=== PATIENT | male | born 1955 | race American Indian/Alaskan Native ===

== ENCOUNTER 2018-05-22 11:17 | Inpatient (IN) | payer BC ==
--- NOTE | 2018-05-22 11:32 | Emergency Department Report ---
Blank Doc - Documentation Documentation: This is a 62 y.o. male that was sent to ER for evaluation of elevated heart rate by bd special education teacher. PMH of DM and Afib. Denies pain at this time. Ordered: Labs Main Ed for further evaluation.
[2018-05-22] MEDS ORDERED: CARDIZEM IV ONE ×2 (12:07→12:55)
[2018-05-22 12:25] LABS: Basophils # (Auto) 0.1 K/mm3 (0.0-0.1); Basophils % (Auto) 0.9 % (0.0-1.8); Eosinophils # (Auto) 0.2 K/mm3 (0.0-0.4); Eosinophils % (Auto) 1.9 % (0.0-4.3); Hematocrit 44.6 % (35.5-45.6); Hemoglobin 14.7 gm/dl (11.8-15.2); Lymphocytes # (Auto) 2.3 K/mm3 (1.2-5.4); Lymphocytes % (Auto) 22.3 % (13.4-35.0); Mean Corpuscular HGB Conc 33 % (32-34); Mean Corpuscular Volume 79 fl (84-94); Monocytes # (Auto) 0.9 K/mm3 (0.0-0.8); Monocytes % (Auto) 8.8 % (0.0-7.3); Platelet Count 201 K/mm3 (140-440); Red Blood Count 5.66 M/mm3 (3.65-5.03); Red Cell Distribution Width 14.3 % (13.2-15.2)
--- NOTE | 2018-05-22 12:27 | Emergency Department Report ---
ED General Adult HPI - General Chief complaint: Arrhythmia/Palpitations Stated complaint: IRREG HEARTBEAT Time Seen by Provider: 05/22/18 11:26 Source: patient Mode of arrival: Ambulatory Limitations: No Limitations - History of Present Illness Initial comments: The patient presents to the ED from his cube machine tender's office for A. fib. The patient states he had a routine follow-up visit today with his cube machine tender when it was noticed that he was in A. fib with RVR. Patient states she has a history A. fib and endorses that he was feeling fine and did not notice that he was having palpitations. Patient denies chest pain, shortness of breath, dizziness, abdominal pain -: Gradual Severity scale (0 -10): 0 Consistency: constant Improves with: none Worsens with: none Associated Symptoms: denies other symptoms Treatments Prior to Arrival: none - Related Data Home Medications Medication Instructions Recorded Confirmed Last Taken Apixaban [Eliquis] 5 mg PO DAILY 05/22/18 05/22/18 Unknown AtorvaSTATin [Lipitor] 20 mg PO QHS 05/22/18 05/22/18 Unknown Bumetanide 1 mg PO DAILY 05/22/18 05/22/18 Unknown Dulaglutide [Trulicity] 1.5 mg SQ QWEEK 05/22/18 05/22/18 Unknown Fenofibrate 160 mg PO DAILY 05/22/18 05/22/18 Unknown Insulin Glargine,Hum.rec.anlog 45 unit SQ QHS 05/22/18 05/22/18 Unknown [Lantus Solostar] Metformin HCl [Glucophage] 1,000 mg PO QDAY 05/22/18 05/22/18 Unknown Metoprolol [Lopressor] 25 mg PO BID 05/22/18 05/22/18 Unknown Potassium Chloride [K-Dur] 20 meq PO QDAY 05/22/18 05/22/18 Unknown Allergies Allergy/AdvReac Type Severity Reaction Status Date / Time hydrocodone Allergy Swelling Verified 05/22/18 11:21 ED Review of Systems ROS: Stated complaint: IRREG HEARTBEAT Other details as noted in HPI Comment: All other systems reviewed and negative Constitutional: denies: chills, fever Eyes: denies: eye pain, eye discharge, vision change ENT: denies: ear pain, throat pain Respiratory: denies: cough, shortness of breath, wheezing Cardiovascular: denies: chest pain, palpitations Endocrine: no symptoms reported Gastrointestinal: denies: abdominal pain, nausea, diarrhea Genitourinary: denies: urgency, dysuria Musculoskeletal: denies: back pain, joint swelling, arthralgia Skin: denies: rash, lesions Neurological: denies: headache, weakness, paresthesias Psychiatric: denies: anxiety, depression Hematological/Lymphatic: denies: easy bleeding, easy bruising ED Past Medical Hx - Past Medical History Previous Medical History?: Yes Hx Diabetes: Yes (type 2) Additional medical history: Afib - Surgical History Past Surgical History?: No - Social History Smoking Status: Never Smoker Substance Use Type: None - Medications Home Medications: Home Medications Medication Instructions Recorded Confirmed Last Taken Type Apixaban [Eliquis] 5 mg PO DAILY 05/22/18 05/22/18 Unknown History AtorvaSTATin [Lipitor] 20 mg PO QHS 05/22/18 05/22/18 Unknown History Bumetanide 1 mg PO DAILY 05/22/18 05/22/18 Unknown History Dulaglutide [Trulicity] 1.5 mg SQ QWEEK 05/22/18 05/22/18 Unknown History Fenofibrate 160 mg PO DAILY 05/22/18 05/22/18 Unknown History Insulin Glargine,Hum.rec.anlog 45 unit SQ QHS 05/22/18 05/22/18 Unknown History [Lantus Solostar] Metformin HCl [Glucophage] 1,000 mg PO QDAY 05/22/18 05/22/18 Unknown History Metoprolol [Lopressor] 25 mg PO BID 05/22/18 05/22/18 Unknown History Potassium Chloride [K-Dur] 20 meq PO QDAY 05/22/18 05/22/18 Unknown History ED Physical Exam - General Limitations: No Limitations General appearance: alert, in no apparent distress - Head Head exam: Present: atraumatic, normocephalic - Eye Eye exam: Present: normal appearance, PERRL, EOMI - ENT ENT exam: Present: mucous membranes moist - Neck Neck exam: Present: normal inspection - Respiratory Respiratory exam: Present: normal lung sounds bilaterally. Absent: respiratory distress, wheezes, rales, rhonchi - Cardiovascular Cardiovascular Exam: Present: normal rhythm, tachycardia, irregular rhythm, other (irregularly irregular). Absent: systolic murmur, diastolic murmur, rubs, gallop - GI/Abdominal GI/Abdominal exam: Present: soft, normal bowel sounds. Absent: distended, tenderness - Rectal Rectal exam: Present: deferred - Extremities Exam Extremities exam: Present: normal inspection - Back Exam Back exam: Present: normal inspection - Neurological Exam Neurological exam: Present: alert, oriented X3, CN II-XII intact. Absent: motor sensory deficit - Psychiatric Psychiatric exam: Present: normal affect, normal mood - Skin Skin exam: Present: warm, dry, intact, normal color. Absent: rash ED Course Vital Signs 05/22/18 05/22/18 11:25 12:16 Temperature 98.0 F Pulse Rate 64 148 H Respiratory 18 Rate Blood Pressure 129/79 [Right] O2 Sat by Pulse 98 Oximetry ED Medical Decision Making - Lab Data Result diagrams: 05/22/18 12:00 05/22/18 12:00 Lab Results 05/22/18 05/22/18 Range/Units 12:00 12:00 WBC 10.4 (4.5-11.0) K/mm3 RBC 5.66 H (3.65-5.03) M/mm3 Hgb 14.7 (11.8-15.2) gm/dl Hct 44.6 (35.5-45.6) % MCV 79 L (84-94) fl MCH 26 L (28-32) pg MCHC 33 (32-34) % RDW 14.3 (13.2-15.2) % Plt Count 201 (140-440) K/mm3 Lymph % (Auto) 22.3 (13.4-35.0) % [place] % (Auto) 8.8 H (0.0-7.3) % Eos % (Auto) 1.9 (0.0-4.3) % Baso % (Auto) 0.9 (0.0-1.8) % Lymph # 2.3 (1.2-5.4) K/mm3 [place] # 0.9 H (0.0-0.8) K/mm3 Eos # 0.2 (0.0-0.4) K/mm3 Baso # 0.1 (0.0-0.1) K/mm3 Seg Neutrophils % 66.1 (40.0-70.0) % Seg Neutrophils # 6.9 (1.8-7.7) K/mm3 Sodium 139 (137-145) mmol/L Potassium 4.4 (3.6-5.0) mmol/L Chloride 101.6 (98-107) mmol/L Carbon Dioxide 24 (22-30) mmol/L Anion Gap 18 mmol/L BUN 15 (9-20) mg/dL Creatinine 1.0 (0.8-1.5) mg/dL Estimated GFR > 60 ml/min BUN/Creatinine Ratio 15 % Glucose 133 H (75-100) mg/dL Calcium 8.8 (8.4-10.2) mg/dL Phosphorus 3.10 (2.5-4.5) mg/dL Magnesium 1.90 (1.7-2.3) mg/dL Total Bilirubin 0.90 (0.1-1.2) mg/dL AST 18 (5-40) units/L ALT 29 (7-56) units/L Alkaline Phosphatase 61 (35-129) units/L Total Protein 6.8 (6.3-8.2) g/dL Albumin 4.0 (3.9-5) g/dL Albumin/Globulin Ratio 1.4 % - EKG Data -: EKG Interpreted by Me Rate: tachycardia - EKG Data Interpretation: other (atrial fibrillation) - Radiology Data Radiology results: report reviewed - Medical Decision Making IV Cardizem given Cardiology consult in the ED Decision made for admission Critical Care Time: Yes Critical care time in (mins) excluding proc time.: 45 Critical care attestation.: If time is entered above; I have spent that time in minutes in the direct care of this critically ill patient, excluding procedure time. ED Disposition Clinical Impression: Afib Disposition: DC-09 OP ADMIT IP TO THIS HOSP Is pt being admited?: Yes Does the pt Need Aspirin: Yes Condition: Fair
[2018-05-22 12:48] LABS: Alanine Aminotransferase 29 units/L (7-56); BUN/Creatinine Ratio 15; Blood Urea Nitrogen 15 mg/dL (9-20); Calcium 8.8 mg/dL (8.4-10.2); Hemolysis Index 5
[2018-05-22] MEDS ORDERED: NACL 0.9% 250ML 250 ML ONE (12:50)
[2018-05-22] MEDS ORDERED: NACL 0.9% 250ML 250 ML IV ONE ×2 (12:55→13:13)
--- NOTE | 2018-05-22 13:09 | XRay Report ---
AP CHEST: HISTORY: afib AP view of the chest demonstrates a normal mediastinal and cardiac contour with clear lungs and normal bony and soft tissue structures. IMPRESSION: Unremarkable AP chest.
[2018-05-22] MEDS ORDERED: CORDARONE 150 MG in D5W 97 ML IV ONE (14:01)
[2018-05-22] MEDS ORDERED: BABY ASPIRIN PO ONE (14:17)
--- NOTE | 2018-05-22 14:42 | Consultation ---
History of Present Illness Consult date: 05/22/18 Requesting physician: ONEIL FONG Consult reason: atrial fibrillation History of present illness: The pt is a 62 YO male with a past medical history of paroxysmal atrial fibrillation, HTN, HLP, DM, MELISSA, obesity. He is followed in our office by Dr. Oglesby. He presented today to our office for scheduled visit and was found to be in AFib with RVR and was referred to PSYCHIATRIC ED for further eval/management. He initially presented to ED with HR 140s - 150s. He was given IV cardizem bolus and on evaluation, he is in AFib with HR 100s. He denies any complaints. He reports that he is typically asymptomatic when he is in AFib with RVR. Echo done 10/2017 showed EF 58%, mild LVH. Lexiscan MPI stress test done 10/2017 was negative for ischemia, showed fixed defects in mid inferior and apical inferior location. 48Hr Holter study done 03/2018 showed dominant rhythm atrial fibrillation with mostly RVR, average HR 144bpm, high density ventricular ectopies or abberantly conducted supraventricular complexes, 3 episodes of NSVT all 3 beats each, no significant pauses. Past History Past Medical History: atrial fib, diabetes, hypertension, hyperlipidemia, other (melissa) Medications and Allergies Allergies Allergy/AdvReac Type Severity Reaction Status Date / Time hydrocodone Allergy Swelling Verified 05/22/18 11:21 Review of Systems All systems: negative (no complaints) Physical Examination Vital Signs Temp Pulse Resp BP Pulse Ox 98.0 F 64 18 129/79 98 05/22/18 11:25 05/22/18 11:25 05/22/18 11:25 05/22/18 11:25 05/22/18 11:25 General appearance: no acute distress HEENT: Positive: PERRL, Normocephaly, Mucus Membranes Moist Neck: Positive: neck supple, trachea midline Cardiac: Positive: irregularly irregular, S1/S2, Tachycardia Lungs: Positive: clear to auscultation Neuro: Positive: Grossly Intact Abdomen: Positive: Soft. Negative: Tender Skin: Negative: Rash, Wound Musculoskeletal: No Pain Extremities: Present: edema (trace BLE) Results 05/22/18 12:00 05/22/18 12:00 Cardiac Enzymes 05/22/18 Range/Units 12:00 AST 18 (5-40) units/L CBC 05/22/18 Range/Units 12:00 WBC 10.4 (4.5-11.0) K/mm3 RBC 5.66 H (3.65-5.03) M/mm3 Hgb 14.7 (11.8-15.2) gm/dl Hct 44.6 (35.5-45.6) % Plt Count 201 (140-440) K/mm3 Lymph # 2.3 (1.2-5.4) K/mm3 [place] # 0.9 H (0.0-0.8) K/mm3 Eos # 0.2 (0.0-0.4) K/mm3 Baso # 0.1 (0.0-0.1) K/mm3 Comprehensive Metabolic Panel 05/22/18 Range/Units 12:00 Sodium 139 (137-145) mmol/L Potassium 4.4 (3.6-5.0) mmol/L Chloride 101.6 (98-107) mmol/L Carbon Dioxide 24 (22-30) mmol/L BUN 15 (9-20) mg/dL Creatinine 1.0 (0.8-1.5) mg/dL Glucose 133 H (75-100) mg/dL Calcium 8.8 (8.4-10.2) mg/dL AST 18 (5-40) units/L ALT 29 (7-56) units/L Alkaline Phosphatase 61 (35-129) units/L Total Protein 6.8 (6.3-8.2) g/dL Albumin 4.0 (3.9-5) g/dL - Imaging and Cardiology Echo: report reviewed (10/2017 showed EF 58%, mild LVH. ) Holter: report reviewed (48Hr Holter study done 03/2018 showed dominant rhythm atrial fibrillation with mostly RVR, average HR 144bpm, high density ventricular ectopies or abberantly conducted supraventricular complexes, 3 episodes of NSVT all 3 beats each, no significant pauses. ) EKG: report reviewed, image reviewed EKG interpretations - Telemetry EKG Rhythm: Atrial Fibrillation - EKG Supraventricular dysrhythmia: atrial fibrillation Assessment and Plan Admit to tele per hospitalists. Optimize HR - pt takes Toprol XL 25mg daily at home, increase to lopressor 25mg BID. Can consider amiodarone if BPs do not permit BB. Resume home Eliquis, lipitor, bumex. The patient has been seen in conjunction with Dr. Goss who agrees with the assessment and plan of care. - Patient Problems (1) Paroxysmal atrial fibrillation with RVR Status: Chronic (2) HTN (hypertension) Status: Chronic (3) Diabetes Status: Chronic (4) Hyperlipidemia Status: Chronic (5) Obesity Status: Chronic (6) Sleep apnea Status: Chronic
[2018-05-22] MEDS ORDERED: CORDARONE 900 MG in D5W 482 ML IV SCH (15:00)
[2018-05-22] MEDS ORDERED: SODIUM CHLORIDE FLUSH SYRINGE 10 ML IV PRN (15:39)
[2018-05-22] MEDS ORDERED: ZOFRAN IV PRN (15:39)
[2018-05-22] MEDS ORDERED: MORPHINE IV PRN (15:39)
[2018-05-22] MEDS ORDERED: PROVENTIL IH PRN (15:39)
--- NOTE | 2018-05-22 15:39 | History and Physical Report ---
History of Present Illness Chief complaint: My heart is beating real fast. History of present illness: 62 YO Male with Atrial Fib currently on Therapeutic Anticoagulation with Eliquis, DM, HTN, Obesity presents to ED for evaluation. Pt states that he has experienced chest palpitations over the past 1 day. Pt was seen by his clinical academic allergist in the office today and was found to have Atrial Fib with RVR. Pt was instructed to seek further care at [facility]. Pt transported to [facility] for further care and evaluation. Pt seen and evaluated in ED and found to have Atrial Fib with RVR and was treated with rate control with improvement in heart rate to around 100bpm. Cardiology consulted in ED. Pt admitted to telemetry. Pt denies fever, chills, CP, NVD, Trauma, Unintentional Weight Loss, Night sweats, Productive cough, Syncope, hemoptysis, skin rash, or recent ill contacts. Past History Past Medical History: atrial fib, diabetes, hypertension, hyperlipidemia, other ([place]) Past Surgical History: No surgical history, Other (reviewed) Social history: . denies: smoking, alcohol abuse, prescription drug abuse Family history: diabetes, hypertension Medications and Allergies Allergies Allergy/AdvReac Type Severity Reaction Status Date / Time hydrocodone Allergy Swelling Verified 05/22/18 11:21 Home Medications Medication Instructions Recorded Confirmed Last Taken Type Apixaban [Eliquis] 5 mg PO DAILY 05/22/18 05/22/18 Unknown History AtorvaSTATin [Lipitor] 20 mg PO QHS 05/22/18 05/22/18 Unknown History Bumetanide 1 mg PO DAILY 05/22/18 05/22/18 Unknown History Dulaglutide [Trulicity] 1.5 mg SQ QWEEK 05/22/18 05/22/18 Unknown History Fenofibrate 160 mg PO DAILY 05/22/18 05/22/18 Unknown History Insulin Glargine,Hum.rec.anlog 45 unit SQ QHS 05/22/18 05/22/18 Unknown History [Lantus Solostar] Metformin HCl [Glucophage] 1,000 mg PO QDAY 05/22/18 05/22/18 Unknown History Metoprolol [Lopressor] 25 mg PO BID 05/22/18 05/22/18 Unknown History Potassium Chloride [K-Dur] 20 meq PO QDAY 05/22/18 05/22/18 Unknown History Active Meds: Active Medications Apixaban (Eliquis) 5 mg PO Q12HR [facility]; Protocol Atorvastatin Calcium (Lipitor) 20 mg PO QHS [facility] Bumetanide (Bumex) 1 mg PO DAILY [facility] Metoprolol Tartrate (Lopressor) 25 mg PO BID [facility] Review of Systems Constitutional: no weight loss, no weight gain, no fever Ears, nose, mouth and throat: no ear pain, no ear discharge, no tinnitis, no decreased hearing, no nose pain Cardiovascular: palpitations, no chest pain, no orthopnea, no rapid/irregular heart beat, no edema Respiratory: no cough, no cough with sputum, no excessive sputum Gastrointestinal: no abdominal pain, no nausea, no vomiting, no diarrhea Genitourinary Male: no dysuria, no hematuria, no flank pain, no discharge, no urinary frequency Rectal: no pain, no incontinence, no bleeding Musculoskeletal: no neck stiffness, no neck pain, no shooting arm pain, no arm numbness/tingling, no low back pain Integumentary: no rash, no pruritis, no redness, no sores, no wounds Neurological: no head injury, no transient paralysis, no paralysis, no weakness, no parathesias, no numbness, no tingling Psychiatric: no anxiety, no memory loss, no change in sleep habits, no sleep disturbances, no insomnia, no hypersomnia, no change in appetite Endocrine: no cold intolerance, no heat intolerance, no polyphagia, no excessive thirst, no polydipsia, no polyuria Hematologic/Lymphatic: no easy bruising, no easy bleeding Allergic/Immunologic: no urticaria, no allergic rhinitis, no wheezing Exam - Constitutional Vitals: Temp Pulse Resp BP Pulse Ox 98.0 F 148 H 18 129/79 98 05/22/18 11:25 05/22/18 12:16 05/22/18 11:25 05/22/18 11:25 05/22/18 11:25 General appearance: Present: mild distress - EENT Eyes: Present: PERRL ENT: hearing intact, clear oral mucosa - Neck Neck: Present: supple, normal ROM - Respiratory Respiratory effort: normal Respiratory: bilateral: CTA - Cardiovascular Rhythm: irregularly irregular Heart Sounds: Present: S1 & S2. Absent: rub, click - Extremities Extremities: pulses symmetrical, No edema Peripheral Pulses: within normal limits - Abdominal General gastrointestinal: Present: soft, non-tender, non-distended, normal bowel sounds Male genitourinary: Present: normal - Integumentary Integumentary: Present: clear, warm, dry - Musculoskeletal Musculoskeletal: gait normal, strength equal bilaterally - Psychiatric Psychiatric: appropriate mood/affect, intact judgment & insight - Neurologic Neurologic: CNII-XII intact, moves all extremities Results - Labs CBC & Chem 7: 05/22/18 12:00 05/22/18 12:00 Labs: Abnormal lab results 05/22/18 05/22/18 Range/Units 12:00 12:00 RBC 5.66 H (3.65-5.03) M/mm3 MCV 79 L (84-94) fl MCH 26 L (28-32) pg [place] % (Auto) 8.8 H (0.0-7.3) % [place] # 0.9 H (0.0-0.8) K/mm3 Glucose 133 H (75-100) mg/dL Assessment and Plan - Patient Problems (1) Afib Current Visit: No Status: Acute Qualifiers: Atrial fibrillation type: persistent Qualified Code(s): I48.1 - Persistent atrial fibrillation Plan to address problem: Admit to Telemetry, Cardiology consulted in ED, rate control with Beta edmund, supportive care. Amiodarone as per cardiology team. (2) Diabetes Current Visit: No Status: Chronic Plan to address problem: ADA diet, insulin, accu check (3) HTN (hypertension) Current Visit: No Status: Chronic Qualifiers: Hypertension type: essential hypertension Qualified Code(s): I10 - Essential (primary) hypertension Plan to address problem: Monitor bp q shift, (4) Hyperlipidemia Current Visit: No Status: Chronic Qualifiers: Hyperlipidemia type: mixed hyperlipidemia Qualified Code(s): E78.2 - Mixed hyperlipidemia Plan to address problem: statin therapy (5) DVT prophylaxis Current Visit: Yes Status: Acute Plan to address problem: SCD to BLE while in bed.
[2018-05-22] MEDS ORDERED: D50W (25GM) Syringe IV PRN (15:42)
[2018-05-22] MEDS ORDERED: LOPRESSOR PO ONE (18:20)
[2018-05-22] MEDS: HumaLOG SUB-Q SCH (18:33)
[2018-05-22] MEDS ORDERED: LOPRESSOR PO SCH (22:00)
[2018-05-22] MEDS: PEPCID PO SCH (22:11)
[2018-05-22] MEDS: ELIQUIS PO SCH (22:12)
[2018-05-22] MEDS: LOPRESSOR PO SCH (22:12)
[2018-05-22] MEDS: SODIUM CHLORIDE FLUSH SYRINGE 10 ML IV SCH (22:13)
[2018-05-23] MEDS: LOPRESSOR PO SCH ×4 (00:18→21:52)
[2018-05-23] MEDS: HumaLOG SUB-Q SCH ×4 (00:18→18:38)
[2018-05-23 06:57] LABS: BUN/Creatinine Ratio 13; Blood Urea Nitrogen 13 mg/dL (9-20); Calcium 8.5 mg/dL (8.4-10.2); Hemolysis Index 29
--- NOTE | 2018-05-23 08:51 | Progress Note ---
Assessment and Plan Assessment and plan: Patient is a 62 yo man with Atrial Fib currently on Therapeutic Anticoagulation with Eliquis, DM, HTN, Obesity bmi 37 and DLP who presented to [facility] ED with chest palpitations. Pt was seen by his electrical wirer in the office and was found to have Atrial Fib with RVR. Pt was instructed to seek further care at [facility]. He initially presented to ED with HR 140s - 150s. He was given IV cardizem bolus. He denies any complaints. He reports that he is typically asymptomatic when he is in AFib with RVR. * Echo done 10/2017 showed EF 58%, mild LVH. * Lexiscan MPI stress test done 10/2017 was negative for ischemia, showed fixed defects in mid inferior and apical inferior location. * 48Hr Holter study done 03/2018 showed dominant rhythm atrial fibrillation with mostly RVR, average HR 144bpm, high density ventricular ectopies or abberantly conducted supraventricular complexes, 3 episodes of NSVT all 3 beats each, no significant pauses. -Afib with RVR: pt takes Toprol XL 25mg daily at home, increase to lopressor 25mg BID. Can consider amiodarone if BPs do not permit BB. -Type 2 Diabetes Mellitus: ADA diet, insulin, accu check -HTN (hypertension): low salt diet, treat with antihypertensives -Hyperlipidemia: statin therapy -DVT prophylaxis: SCD to BLE while in bed on Eliquis History Interval history: Patient was seen and examined. Follow-up on current diagnosis of AFib with RVR. Overnight uneventful. Patient denies any chest pain, shortness breath, nausea/vomiting or severe headaches. Imaging, nursing note, chart, labs and old chart reviewed. Discussed with patient. Hospitalist Physical - Physical exam Narrative exam: Gen: WDWN, NAD, Awake, Alert, Orientated HEENT: NCAT, EOMI, PERRL, OP Clear Neck: supple, no adenopathy, no thyromegaly, no JVD CVS/Heart: irregular irregular, normal S1S2, pulses present bilaterally Chest/Lungs: CTA B, Symmetrical chest expansion, good air entry bilaterally GI/Abdomen: soft, NTND, good bowel sounds, no guarding or rebound /Bladder: no suprapubic tenderness, no CVA or paraspinal tenderness Extermity/Skin: no c/c/e, no obvious rash MSK: FROM x 4 Neuro: CN 2-12 grossly intact, no new focal deficits Psych: calm - Constitutional Vitals: Temp Pulse Resp BP Pulse Ox 99.0 F 139 H 18 144/79 95 05/23/18 07:59 05/23/18 06:00 05/23/18 07:59 05/23/18 07:59 05/23/18 04:34 General appearance: Absent: mild distress Results - Labs CBC & Chem 7: 05/22/18 12:00 05/23/18 06:10 Labs: Laboratory Last Values WBC 10.4 K/mm3 (4.5-11.0) 05/22/18 12:00 RBC 5.66 M/mm3 (3.65-5.03) H 05/22/18 12:00 Hgb 14.7 gm/dl (11.8-15.2) 05/22/18 12:00 Hct 44.6 % (35.5-45.6) 05/22/18 12:00 MCV 79 fl (84-94) L 05/22/18 12:00 MCH 26 pg (28-32) L 05/22/18 12:00 MCHC 33 % (32-34) 05/22/18 12:00 RDW 14.3 % (13.2-15.2) 05/22/18 12:00 Plt Count 201 K/mm3 (140-440) 05/22/18 12:00 Lymph % (Auto) 22.3 % (13.4-35.0) 05/22/18 12:00 [place] % (Auto) 8.8 % (0.0-7.3) H 05/22/18 12:00 Eos % (Auto) 1.9 % (0.0-4.3) 05/22/18 12:00 Baso % (Auto) 0.9 % (0.0-1.8) 05/22/18 12:00 Lymph # 2.3 K/mm3 (1.2-5.4) 05/22/18 12:00 [place] # 0.9 K/mm3 (0.0-0.8) H 05/22/18 12:00 Eos # 0.2 K/mm3 (0.0-0.4) 05/22/18 12:00 Baso # 0.1 K/mm3 (0.0-0.1) 05/22/18 12:00 Seg Neutrophils % 66.1 % (40.0-70.0) 05/22/18 12:00 Seg Neutrophils # 6.9 K/mm3 (1.8-7.7) 05/22/18 12:00 Sodium 136 mmol/L (137-145) L 05/23/18 06:10 Potassium 5.0 mmol/L (3.6-5.0) 05/23/18 06:10 Chloride 102.2 mmol/L (98-107) 05/23/18 06:10 Carbon Dioxide 22 mmol/L (22-30) 05/23/18 06:10 Anion Gap 17 mmol/L 05/23/18 06:10 BUN 13 mg/dL (9-20) 05/23/18 06:10 Creatinine 1.0 mg/dL (0.8-1.5) 05/23/18 06:10 Estimated GFR > 60 ml/min 05/23/18 06:10 BUN/Creatinine Ratio 13 % 05/23/18 06:10 Glucose 122 mg/dL (75-100) H 05/23/18 06:10 POC Glucose 109 (70-105) H 05/23/18 05:38 Calcium 8.5 mg/dL (8.4-10.2) 05/23/18 06:10 Phosphorus 3.10 mg/dL (2.5-4.5) 05/22/18 12:00 Magnesium 1.90 mg/dL (1.7-2.3) 05/22/18 12:00 Total Bilirubin 0.90 mg/dL (0.1-1.2) 05/22/18 12:00 AST 18 units/L (5-40) 05/22/18 12:00 ALT 29 units/L (7-56) 05/22/18 12:00 Alkaline Phosphatase 61 units/L (35-129) 05/22/18 12:00 Total Protein 6.8 g/dL (6.3-8.2) 05/22/18 12:00 Albumin 4.0 g/dL (3.9-5) 05/22/18 12:00 Albumin/Globulin Ratio 1.4 % 05/22/18 12:00 TSH 1.180 mlU/mL (0.270-4.200) 05/22/18 14:59 Free T4 1.35 ng/dL (0.76-1.46) 05/22/18 14:59
[2018-05-23] MEDS: TRICOR PO SCH (09:23)
[2018-05-23] MEDS: PEPCID PO SCH ×2 (09:24→21:53)
[2018-05-23] MEDS: BUMEX PO SCH (09:31)
[2018-05-23] MEDS: ELIQUIS PO SCH ×2 (09:31)
[2018-05-23] MEDS ORDERED: K-DUR PO SCH (10:00)
[2018-05-23] MEDS ORDERED: NON-FORMULARY (Fenofibrate [Fenofibrate] 160 MG) PO SCH (10:00)
[2018-05-23] MEDS ORDERED: BUMEX PO SCH (10:00)
[2018-05-23] MEDS: SODIUM CHLORIDE FLUSH SYRINGE 10 ML IV SCH ×2 (10:30→21:53)
--- NOTE | 2018-05-23 11:16 | Progress Note ---
Assessment and Plan Pt noted to be in AFib with RVR again this AM. Optimize HR - initiate IV amio. Cont PO lopressor and Eliquis. The patient has been seen in conjunction with Dr. Goss who agrees with the assessment and plan of care. - Patient Problems (1) Paroxysmal atrial fibrillation with RVR Current Visit: Yes Status: Chronic (2) HTN (hypertension) Current Visit: Yes Status: Chronic Qualifiers: Hypertension type: essential hypertension Qualified Code(s): I10 - Essential (primary) hypertension (3) Diabetes Current Visit: Yes Status: Chronic (4) Hyperlipidemia Current Visit: Yes Status: Chronic Qualifiers: Hyperlipidemia type: mixed hyperlipidemia Qualified Code(s): E78.2 - Mixed hyperlipidemia (5) Obesity Current Visit: Yes Status: Chronic (6) Sleep apnea Current Visit: Yes Status: Chronic Subjective Date of service: 05/23/18 Principal diagnosis: AFib RVR Interval history: pt resting in bed, no current complaints. noted to be in AFib with RVR again this AM. Objective Last Vital Signs Temp 99.0 F 05/23/18 07:59 Pulse 139 H 05/23/18 06:00 Resp 18 05/23/18 07:59 BP 144/79 05/23/18 07:59 Pulse Ox 95 05/23/18 04:34 - Physical Examination General: No Apparent Distress HEENT: Positive: PERRL, Normocephaly, Mucus Membranes Moist Neck: Positive: neck supple, trachea midline Cardiac: Positive: irregularly irregular, S1/S2, Tachycardia Lungs: Positive: Decreased Breath Sounds Neuro: Positive: Grossly Intact Abdomen: Positive: Soft. Negative: Tender Skin: Negative: Rash, Wound Musculoskeletal: No Pain Extremities: Present: edema (trace BLE) - Labs and Meds Cardiac Enzymes 05/22/18 Range/Units 12:00 AST 18 (5-40) units/L CBC 05/22/18 Range/Units 12:00 WBC 10.4 (4.5-11.0) K/mm3 RBC 5.66 H (3.65-5.03) M/mm3 Hgb 14.7 (11.8-15.2) gm/dl Hct 44.6 (35.5-45.6) % Plt Count 201 (140-440) K/mm3 Lymph # 2.3 (1.2-5.4) K/mm3 [place] # 0.9 H (0.0-0.8) K/mm3 Eos # 0.2 (0.0-0.4) K/mm3 Baso # 0.1 (0.0-0.1) K/mm3 Comprehensive Metabolic Panel 05/22/18 05/23/18 Range/Units 12:00 06:10 Sodium 139 136 L (137-145) mmol/L Potassium 4.4 5.0 (3.6-5.0) mmol/L Chloride 101.6 102.2 (98-107) mmol/L Carbon Dioxide 24 22 (22-30) mmol/L BUN 15 13 (9-20) mg/dL Creatinine 1.0 1.0 (0.8-1.5) mg/dL Glucose 133 H 122 H (75-100) mg/dL Calcium 8.8 8.5 (8.4-10.2) mg/dL AST 18 (5-40) units/L ALT 29 (7-56) units/L Alkaline Phosphatase 61 (35-129) units/L Total Protein 6.8 (6.3-8.2) g/dL Albumin 4.0 (3.9-5) g/dL - Imaging and Cardiology EKG: report reviewed, image reviewed Echo: report reviewed (10/2017 showed EF 58%, mild LVH. ) Holter: report reviewed (48Hr Holter study done 03/2018 showed dominant rhythm atrial fibrillation with mostly RVR, average HR 144bpm, high density ventricular ectopies or abberantly conducted supraventricular complexes, 3 episodes of NSVT all 3 beats each, no significant pauses. ) - Telemetry EKG Rhythm: Atrial Fibrillation
[2018-05-23] MEDS ORDERED: CORDARONE 150 MG in D5W 97 ML IV ONE (11:55)
[2018-05-23] MEDS ORDERED: AFLURIA QUAD 2018-2019 SYRINGE IM ONE (12:00)
[2018-05-23] MEDS: CORDARONE 900 MG in D5W 482 ML IV SCH (13:22)
[2018-05-24] MEDS: HumaLOG SUB-Q SCH ×4 (00:58→17:47)
[2018-05-24] MEDS: ELIQUIS PO SCH (09:57)
[2018-05-24] MEDS: BUMEX PO SCH (09:57)
[2018-05-24] MEDS: LOPRESSOR PO SCH ×2 (09:57→21:31)
[2018-05-24] MEDS: TRICOR PO SCH (09:58)
[2018-05-24] MEDS: PEPCID PO SCH ×2 (09:58→21:31)
[2018-05-24] MEDS ORDERED: CORDARONE 150 MG in D5W 97 ML IV ONE (11:25)
--- NOTE | 2018-05-24 11:34 | Progress Note ---
Assessment and Plan Pt remains in AFib with RVR, HR 130s - 140s. Give additional bolus of IV amio and cont amio gtt. Cont PO lopressor and Eliquis. If unable to optimize HR chemically, pt may require DCCV. Indications, potential risks and benefits of cardioversion reviewed with pt and he is agreeable if necessary. Will tentatively plan for cardioversion with anesthesia tomorrow morning. NPO after MN. The patient has been seen in conjunction with Dr. Goss who agrees with the assessment and plan of care. - Patient Problems (1) Paroxysmal atrial fibrillation with RVR Current Visit: Yes Status: Chronic (2) HTN (hypertension) Current Visit: Yes Status: Chronic Qualifiers: Hypertension type: essential hypertension Qualified Code(s): I10 - Essent ial (primary) hypertension (3) Diabetes Current Visit: Yes Status: Chronic (4) Hyperlipidemia Current Visit: Yes Status: Chronic Qualifiers: Hyperlipidemia type: mixed hyperlipidemia Qualified Code(s): E78.2 - Mixed hyperlipidemia (5) Obesity Current Visit: Yes Status: Chronic (6) Sleep apnea Current Visit: Yes Status: Chronic Subjective Date of service: 05/24/18 Principal diagnosis: AFib RVR Interval history: pt resting in bed, no current complaints. remains in AFib with RVR. amio gtt infusing. Objective Last Vital Signs Temp 98.3 F 05/24/18 07:58 Pulse 61 05/24/18 09:57 Resp 20 05/24/18 07:58 BP 141/87 05/24/18 09:57 Pulse Ox 98 05/24/18 10:00 - Physical Examination General: No Apparent Distress HEENT: Positive: PERRL, Normocephaly, Mucus Membranes Moist Neck: Positive: neck supple, trachea midline Cardiac: Positive: irregularly irregular, S1/S2, Tachycardia Lungs: Positive: Decreased Breath Sounds Neuro: Positive: Grossly Intact Abdomen: Positive: Soft. Negative: Tender Skin: Negative: Rash, Wound Musculoskeletal: No Pain Extremities: Present: edema (trace BLE) - Imaging and Cardiology EKG: report reviewed, image reviewed Echo: report reviewed (10/2017 showed EF 58%, mild LVH. ) Holter: report reviewed (48Hr Holter study done 03/2018 showed dominant rhythm atrial fibrillation with mostly RVR, average HR 144bpm, high density ventricular ectopies or abberantly conducted supraventricular complexes, 3 episodes of NSVT all 3 beats each, no significant pauses. )
[2018-05-24] MEDS: SODIUM CHLORIDE FLUSH SYRINGE 10 ML IV SCH ×2 (14:00→21:32)
--- NOTE | 2018-05-24 17:24 | Progress Note ---
Assessment and Plan Assessment and plan: Patient is a 62 yo man with Atrial Fib currently on Therapeutic Anticoagulation with Eliquis, DM, HTN, Obesity bmi 37 and DLP who presented to [facility] ED with chest palpitations. Pt was seen by his computer forensics technician in the office and was found to have Atrial Fib with RVR. Pt was instructed to seek further care at [facility]. He initially presented to ED with HR 140s - 150s. He was given IV cardizem bolus. He denies any complaints. He reports that he is typically asymptomatic when he is in AFib with RVR. * Echo done 10/2017 showed EF 58%, mild LVH. * Lexiscan MPI stress test done 10/2017 was negative for ischemia, showed fixed defects in mid inferior and apical inferior location. * 48Hr Holter study done 03/2018 showed dominant rhythm atrial fibrillation with mostly RVR, average HR 144bpm, high density ventricular ectopies or abberantly conducted supraventricular complexes, 3 episodes of NSVT all 3 beats each, no significant pauses. -Afib with RVR: Cardiology is following, adjusting medications to control rate, possible Cardioversion -Type 2 Diabetes Mellitus: ADA diet, insulin, accu check -HTN (hypertension): low salt diet, treat with antihypertensives -Hyperlipidemia: statin therapy -DVT prophylaxis: SCD to BLE while in bed on Eliquis History Interval history: Patient was seen and examined. Follow-up on current diagnosis of AFib with RVR. Overnight uneventful. Patient denies any chest pain, shortness breath, nausea/vomiting or severe headaches. Imaging, nursing note, chart, labs and old chart reviewed. Discussed with patient. Hospitalist Physical - Physical exam Narrative exam: Gen: WDWN, NAD, Awake, Alert, Orientated HEENT: NCAT, EOMI, PERRL, OP Clear Neck: supple, no adenopathy, no thyromegaly, no JVD CVS/Heart: irregular irregular, normal S1S2, pulses present bilaterally Chest/Lungs: CTA B, Symmetrical chest expansion, good air entry bilaterally GI/Abdomen: soft, NTND, good bowel sounds, no guarding or rebound /Bladder: no suprapubic tenderness, no CVA or paraspinal tenderness Extermity/Skin: no c/c/e, no obvious rash MSK: FROM x 4 Neuro: CN 2-12 grossly intact, no new focal deficits Psych: calm - Constitutional Vitals: Temp Pulse Resp BP Pulse Ox 98.0 F 73 20 100/59 96 05/24/18 11:27 05/24/18 11:27 05/24/18 11:27 05/24/18 11:27 05/24/18 11:27 General appearance: Absent: mild distress Results - Labs CBC & Chem 7: 05/22/18 12:00 05/23/18 06:10 Labs: Laboratory Last Values WBC 10.4 K/mm3 (4.5-11.0) 05/22/18 12:00 RBC 5.66 M/mm3 (3.65-5.03) H 05/22/18 12:00 Hgb 14.7 gm/dl (11.8-15.2) 05/22/18 12:00 Hct 44.6 % (35.5-45.6) 05/22/18 12:00 MCV 79 fl (84-94) L 05/22/18 12:00 MCH 26 pg (28-32) L 05/22/18 12:00 MCHC 33 % (32-34) 05/22/18 12:00 RDW 14.3 % (13.2-15.2) 05/22/18 12:00 Plt Count 201 K/mm3 (140-440) 05/22/18 12:00 Lymph % (Auto) 22.3 % (13.4-35.0) 05/22/18 12:00 [place] % (Auto) 8.8 % (0.0-7.3) H 05/22/18 12:00 Eos % (Auto) 1.9 % (0.0-4.3) 05/22/18 12:00 Baso % (Auto) 0.9 % (0.0-1.8) 05/22/18 12:00 Lymph # 2.3 K/mm3 (1.2-5.4) 05/22/18 12:00 [place] # 0.9 K/mm3 (0.0-0.8) H 05/22/18 12:00 Eos # 0.2 K/mm3 (0.0-0.4) 05/22/18 12:00 Baso # 0.1 K/mm3 (0.0-0.1) 05/22/18 12:00 Seg Neutrophils % 66.1 % (40.0-70.0) 05/22/18 12:00 Seg Neutrophils # 6.9 K/mm3 (1.8-7.7) 05/22/18 12:00 Sodium 136 mmol/L (137-145) L 05/23/18 06:10 Potassium 5.0 mmol/L (3.6-5.0) 05/23/18 06:10 Chloride 102.2 mmol/L (98-107) 05/23/18 06:10 Carbon Dioxide 22 mmol/L (22-30) 05/23/18 06:10 Anion Gap 17 mmol/L 05/23/18 06:10 BUN 13 mg/dL (9-20) 05/23/18 06:10 Creatinine 1.0 mg/dL (0.8-1.5) 05/23/18 06:10 Estimated GFR > 60 ml/min 05/23/18 06:10 BUN/Creatinine Ratio 13 % 05/23/18 06:10 Glucose 122 mg/dL (75-100) H 05/23/18 06:10 POC Glucose 190 (70-105) H 05/24/18 16:32 Calcium 8.5 mg/dL (8.4-10.2) 05/23/18 06:10 Phosphorus 3.10 mg/dL (2.5-4.5) 05/22/18 12:00 Magnesium 1.90 mg/dL (1.7-2.3) 05/22/18 12:00 Total Bilirubin 0.90 mg/dL (0.1-1.2) 05/22/18 12:00 AST 18 units/L (5-40) 05/22/18 12:00 ALT 29 units/L (7-56) 05/22/18 12:00 Alkaline Phosphatase 61 units/L (35-129) 05/22/18 12:00 Total Protein 6.8 g/dL (6.3-8.2) 05/22/18 12:00 Albumin 4.0 g/dL (3.9-5) 05/22/18 12:00 Albumin/Globulin Ratio 1.4 % 05/22/18 12:00 TSH 1.180 mlU/mL (0.270-4.200) 05/22/18 14:59 Free T4 1.35 ng/dL (0.76-1.46) 05/22/18 14:59
[2018-05-24] MEDS: CORDARONE 900 MG in D5W 482 ML IV SCH (20:15)
[2018-05-24] MEDS ORDERED: AMBIEN PO PRN (22:00)
[2018-05-25] MEDS: HumaLOG SUB-Q SCH ×4 (00:15→18:46)
[2018-05-25] MEDS ORDERED: DIPRIVAN 10 MG/ML IV ONE ×2 (09:57)
--- NOTE | 2018-05-25 10:07 | Progress Note ---
Assessment and Plan Pt remains in AFib with RVR. Proceed with DCCV today. The patient has been seen in conjunction with Dr. Goss who agrees with the assessment and plan of care. - Patient Problems (1) Paroxysmal atrial fibrillation with RVR Current Visit: Yes Status: Chronic (2) HTN (hypertension) Current Visit: Yes Status: Chronic Qualifiers: Hypertension type: essential hypertension Qualified Code(s): I10 - Essential (primary) hypertension (3) Diabetes Current Visit: Yes Status: Chronic (4) Hyperlipidemia Current Visit: Yes Status: Chronic Qualifiers: Hyperlipidemia type: mixed hyperlipidemia Qualified Code(s): E78.2 - Mixed hyperlipidemia (5) Obesity Current Visit: Yes Status: Chronic (6) Sleep apnea Current Visit: Yes Status: Chronic Subjective Date of service: 05/25/18 Principal diagnosis: AFib RVR Interval history: pt resting in bed, no current complaints. remains in AFib with RVR HR 150s. amio gtt infusing. Objective Last Vital Signs Temp 98.3 F 05/25/18 03:36 Pulse 140 H 05/25/18 06:00 Resp 18 05/25/18 03:36 BP 105/73 05/25/18 03:36 Pulse Ox 98 05/25/18 03:36 - Physical Examination General: No Apparent Distress HEENT: Positive: PERRL, Normocephaly, Mucus Membranes Moist Neck: Positive: neck supple, trachea midline Cardiac: Positive: irregularly irregular, S1/S2, Tachycardia Lungs: Positive: Decreased Breath Sounds Neuro: Positive: Grossly Intact Abdomen: Positive: Soft. Negative: Tender Skin: Negative: Rash, Wound Musculoskeletal: No Pain Extremities: Present: edema (trace BLE) - Imaging and Cardiology EKG: report reviewed, image reviewed Echo: report reviewed (10/2017 showed EF 58%, mild LVH. ) Holter: report reviewed (48Hr Holter study done 03/2018 showed dominant rhythm atrial fibrillation with mostly RVR, average HR 144bpm, high density ventricular ectopies or abberantly conducted supraventricular complexes, 3 episodes of NSVT all 3 beats each, no significant pauses. ) - Telemetry EKG Rhythm: Atrial Fibrillation
[2018-05-25] MEDS ORDERED: NACL 0.9% 500 ML 500 ML ONE (10:12)
--- NOTE | 2018-05-25 10:13 | Anesthesia Day of Surgery ---
Anesthesia Day of Surgery - Day of Surgery Patient Examined: Yes Patient H&P Reviewed: Yes Patient is NPO: Yes
--- NOTE | 2018-05-25 10:13 | Anesthesia Consultation ---
Anesthesia Consult and Med Hx Date of service: 05/25/18 - Airway Anesthetic Teeth Evaluation: Partials (upper) ROM Head & Neck: Adequate Mental/Hyoid Distance: Adequate Mallampati Class: Class III Intubation Access Assessment: Possibly Difficult - Pre-Operative Health Status ASA Pre-Surgery Classification: ASA3 Proposed Anesthetic Plan: MAC - Pulmonary Hx Sleep Apnea: Yes - Cardiovascular System Hx Hypertension: Yes Hx Coronary Artery Disease: No (high cholesterol) Hx Cardia Arrhythmia: Yes (atrial fibrillation) - Endocrine Hx Non-Insulin Dependent Diabetes: Yes - Other Systems Hx Cancer: No Hx Obesity: Yes (BMI 37.6)
--- NOTE | 2018-05-25 10:40 | Event Note ---
Date: 05/25/18 S/p unsuccessful DCCV x 3 (200J -> 300J -> 360J) with anesthesia. Will attempt to optimize HR - cont amio gtt, increase lopressor and initiate digoxin. Pt may ultimately require transfer to another facility for ablation. Daquan FORREST NP / DR. SHIRLEY
[2018-05-25] MEDS: LANOXIN IV SCH ×2 (13:11→18:43)
[2018-05-25] MEDS: PEPCID PO SCH ×2 (13:17→22:25)
[2018-05-25] MEDS: BUMEX PO SCH (13:18)
[2018-05-25] MEDS: ELIQUIS PO SCH (13:18)
[2018-05-25] MEDS: TRICOR PO SCH (13:18)
[2018-05-25] MEDS: LOPRESSOR PO SCH ×2 (13:23→20:23)
[2018-05-25] MEDS: SODIUM CHLORIDE FLUSH SYRINGE 10 ML IV SCH ×2 (13:27→22:26)
--- NOTE | 2018-05-25 18:57 | Procedure Note ---
ELECTIVE CARDIOVERSION REPORT INDICATION FOR PROCEDURE: Atrial fibrillation, rapid ventricular response. Informed consent was obtained. The patient was brought to the procedure area for elective DC cardioversion. Conscious sedation was performed by Anesthesiology, who was in attendance throughout the entire procedure. Once adequate anesthesia was achieved, synchronized DC cardioversion was performed first at 200 joules, followed by 300 joules, followed by 360 joules. The patient failed to convert from atrial fibrillation. The procedure was well tolerated. There were no apparent procedural complications. Anesthesia remained at the patient's bedside during the recovery phase. Unsuccessful synchronized DC electrical cardioversion x 3 at 200, 300 and finally 360 joules. Continue current medical program. JOB# [id number] SEBASTIEN/TENZIN
[2018-05-25] MEDS: TYLENOL PO PRN (20:23)
--- NOTE | 2018-05-25 21:03 | Progress Note ---
Assessment and Plan Assessment and plan: Patient is a 62 yo man with Atrial Fib currently on Therapeutic Anticoagulation with Eliquis, DM, HTN, Obesity bmi 37 and DLP who presented to [facility] ED with chest palpitations. Pt was seen by his employee development manager in the office and was found to have Atrial Fib with RVR. Pt was instructed to seek further care at [facility]. He initially presented to ED with HR 140s - 150s. He was given IV cardizem bolus. He denies any complaints. He reports that he is typically asymptomatic when he is in AFib with RVR. * Echo done 10/2017 showed EF 58%, mild LVH. * Lexiscan MPI stress test done 10/2017 was negative for ischemia, showed fixed defects in mid inferior and apical inferior location. * 48Hr Holter study done 03/2018 showed dominant rhythm atrial fibrillation with mostly RVR, average HR 144bpm, high density ventricular ectopies or abberantly conducted supraventricular complexes, 3 episodes of NSVT all 3 beats each, no significant pauses. -Afib with RVR: Cardiology is following, adjusting medications to control rate, failed Cardioversion, medical management -Type 2 Diabetes Mellitus: ADA diet, insulin, accu check -HTN (hypertension): low salt diet, treat with antihypertensives -Hyperlipidemia: statin therapy -DVT prophylaxis: SCD to BLE, Eliquis History Interval history: Patient was seen and examined. Follow-up on current diagnosis of AFib with RVR. Overnight uneventful. Patient denies any chest pain, shortness breath, nausea/vomiting or severe headaches. Imaging, nursing note, chart, labs and old chart reviewed. Discussed with patient. Hospitalist Physical - Constitutional Vitals: Temp Pulse Resp BP Pulse Ox 101.3 F H 145 H 18 114/67 95 05/25/18 20:01 05/25/18 20:53 05/25/18 20:23 05/25/18 20:01 05/25/18 20:01 General appearance: Absent: mild distress Results - Labs CBC & Chem 7: 05/22/18 12:00 05/23/18 06:10 Labs: Laboratory Last Values WBC 10.4 K/mm3 (4.5-11.0) 05/22/18 12:00 RBC 5.66 M/mm3 (3.65-5.03) H 05/22/18 12:00 Hgb 14.7 gm/dl (11.8-15.2) 05/22/18 12:00 Hct 44.6 % (35.5-45.6) 05/22/18 12:00 MCV 79 fl (84-94) L 05/22/18 12:00 MCH 26 pg (28-32) L 05/22/18 12:00 MCHC 33 % (32-34) 05/22/18 12:00 RDW 14.3 % (13.2-15.2) 05/22/18 12:00 Plt Count 201 K/mm3 (140-440) 05/22/18 12:00 Lymph % (Auto) 22.3 % (13.4-35.0) 05/22/18 12:00 Josephine % (Auto) 8.8 % (0.0-7.3) H 05/22/18 12:00 Eos % (Auto) 1.9 % (0.0-4.3) 05/22/18 12:00 Baso % (Auto) 0.9 % (0.0-1.8) 05/22/18 12:00 Lymph # 2.3 K/mm3 (1.2-5.4) 05/22/18 12:00 Josephine # 0.9 K/mm3 (0.0-0.8) H 05/22/18 12:00 Eos # 0.2 K/mm3 (0.0-0.4) 05/22/18 12:00 Baso # 0.1 K/mm3 (0.0-0.1) 05/22/18 12:00 Seg Neutrophils % 66.1 % (40.0-70.0) 05/22/18 12:00 Seg Neutrophils # 6.9 K/mm3 (1.8-7.7) 05/22/18 12:00 Sodium 136 mmol/L (137-145) L 05/23/18 06:10 Potassium 5.0 mmol/L (3.6-5.0) 05/23/18 06:10 Chloride 102.2 mmol/L (98-107) 05/23/18 06:10 Carbon Dioxide 22 mmol/L (22-30) 05/23/18 06:10 Anion Gap 17 mmol/L 05/23/18 06:10 BUN 13 mg/dL (9-20) 05/23/18 06:10 Creatinine 1.0 mg/dL (0.8-1.5) 05/23/18 06:10 Estimated GFR > 60 ml/min 05/23/18 06:10 BUN/Creatinine Ratio 13 % 05/23/18 06:10 Glucose 122 mg/dL (75-100) H 05/23/18 06:10 POC Glucose 191 (70-105) H 05/25/18 15:24 Calcium 8.5 mg/dL (8.4-10.2) 05/23/18 06:10 Phosphorus 3.10 mg/dL (2.5-4.5) 05/22/18 12:00 Magnesium 1.90 mg/dL (1.7-2.3) 05/22/18 12:00 Total Bilirubin 0.90 mg/dL (0.1-1.2) 05/22/18 12:00 AST 18 units/L (5-40) 05/22/18 12:00 ALT 29 units/L (7-56) 05/22/18 12:00 Alkaline Phosphatase 61 units/L (35-129) 05/22/18 12:00 Total Protein 6.8 g/dL (6.3-8.2) 05/22/18 12:00 Albumin 4.0 g/dL (3.9-5) 05/22/18 12:00 Albumin/Globulin Ratio 1.4 % 05/22/18 12:00 TSH 1.180 mlU/mL (0.270-4.200) 05/22/18 14:59 Free T4 1.35 ng/dL (0.76-1.46) 05/22/18 14:59
--- NOTE | 2018-05-25 23:58 | XRay Report ---
PROCEDURE: XR CHEST 1V AP TECHNIQUE: Chest radiograph single view. HISTORY: ELEVATED TEMPERTURE. COMPARISONS: None . FINDINGS: Heart: Normal. Mediastinum/Vessels: Normal. Lungs/Pleural space: Lungs are hyperinflated. There are no confluent infiltrates or mass lesions. Pl eural spaces are clear.. Bony thorax: No acute osseous abnormality. Life support devices: None. IMPRESSION: COPD No acute pulmonary process. This document is electronically signed by Justice Nazario MD., May 25 2018 11:55:58 PM ET
[2018-05-26] MEDS: HumaLOG SUB-Q SCH ×4 (01:02→17:33)
[2018-05-26] MEDS: LANOXIN IV SCH (01:03)
[2018-05-26] MEDS: CORDARONE 900 MG in D5W 482 ML IV SCH ×4 (01:25→21:58)
[2018-05-26 02:02] LABS: Bilirubin,Urine NEG (Negative); Blood,Urine NEG (Negative); Color,Urine Yellow (Yellow); Protein,Urine <15 mg/dL mg/dL (Negative)
[2018-05-26 03:06] LABS: WBC,Urine < 1.0 /HPF (0.0-6.0)
[2018-05-26] MEDS: ROCEPHIN/NS 1 GM/50 ML 1 GM/50 ML BAG IV SCH ×2 (06:25→21:19)
[2018-05-26] MEDS: TYLENOL PO PRN (06:48)
[2018-05-26] MEDS ORDERED: LANOXIN IV STA (07:59)
--- NOTE | 2018-05-26 10:42 | Progress Note ---
Assessment and Plan Atrial fibrillation with rapid ventricular response continues to be a problem. Initially he was tried on Cardizem currently he is on an amiodarone drip. He is also on a small dose of metoprolol. Yesterday cardioversion was attempted but this was unsuccessful. Digoxin has been added to that regimen. I had a long discussion with the daughter who has been quite frustrated and has some issues with the nursing care at nighttime and want the patient transferred. I had a long discussion with her regarding all the management that has been so far which I feel has been quite appropriate. I have advised her that we will be adjusting the medications further and will continue monitoring. We will make an attempt to transfer her to [facility] for consideration of ablation. Patient had a chest x-ray yesterday and this was negative. Urinalysis was negative. White count is not significantly elevated. Patient did have temperature elevation and he had blood cultures drawn. We will also obtain a thyroid profile. Patient is tolerating the heart rate. Because of the blood pressure being on the low side medications are not being aggressively increased. Will gradually increase the metoprolol. And will try a amiodarone 1 mg dose for another 6 hours. At the end of about half an hour to 40 minute discussion with the patient and family they seem to be agreeable with the current plans. Plan is to adjust the medications and continue monitoring.will try PT also We'll make an attempt to transfer him to the [facility] when feasible - Patient Problems (1) Atrial fibrillation with rapid ventricular response Current Visit: Yes Status: Acute (2) Diabetes Current Visit: Yes Status: Chronic (3) HTN (hypertension) Current Visit: Yes Status: Chronic Qualifiers: Hypertension type: essential hypertension Qualified Code(s): I10 - Essential (primary) hypertension (4) Hyperlipidemia Current Visit: Yes Status: Chronic Qualifiers: Hyperlipidemia type: mixed hyperlipidemia Qualified Code(s): E78.2 - Mixed hyperlipidemia (5) Obesity Current Visit: Yes Status: Chronic (6) Sleep apnea Current Visit: Yes Status: Chronic Subjective Date of service: 05/26/18 Principal diagnosis: AFib RVR Interval history: Patient is comfortable today. He denies chest pain difficulty in breathing or palpitations. Persistent atrial fibrillation with rapid rate is continued problem. Patient had fever yesterday. Blood cultures drawn. Daughter is in the room. Objective Vital Signs Temp Pulse Pulse Resp Resp BP BP 05/26/18 06:48 18 05/26/18 04:51 99.3 F 57 L 18 134/81 05/26/18 01:03 119 H 05/25/18 23:40 98.3 F 104 H 20 130/82 05/25/18 22:00 05/25/18 20:53 145 H 05/25/18 20:23 145 H 18 05/25/18 20:01 101.3 F H 45 L 18 114/67 05/25/18 18:43 146 H 107/74 05/25/18 15:24 98.0 F 64 20 107/74 05/25/18 13:23 138 H 112/78 05/25/18 13:11 138 H 112/78 05/25/18 11:00 71 20 114/61 05/25/18 10:45 141 H 30 H 115/68 Pulse Ox Pulse Ox 05/26/18 06:48 05/26/18 04:51 97 05/26/18 01:03 05/25/18 23:40 98 05/25/18 22:00 99 05/25/18 20:53 05/25/18 20:23 05/25/18 20:01 95 05/25/18 18:43 05/25/18 15:24 95 05/25/18 13:23 05/25/18 13:11 05/25/18 11:00 99 05/25/18 10:45 99 - Physical Examination General: No Apparent Distress HEENT: Positive: PERRL, Normocephaly, Mucus Membranes Moist Neck: Positive: neck supple, trachea midline Cardiac: Positive: irregularly irregular, Tachycardia Lungs: Positive: clear to auscultation Neuro: Positive: Grossly Intact Abdomen: Positive: Soft. Negative: Tender Skin: Negative: Rash, Wound Musculoskeletal: No Pain Extremities: Present: edema (trace BLE) - Imaging and Cardiology EKG: report reviewed, image reviewed Echo: report reviewed (10/2017 showed EF 58%, mild LVH. ) Holter: report reviewed (48Hr Holter study done 03/2018 showed dominant rhythm atrial fibrillation with mostly RVR, average HR 144bpm, high density ventricular ectopies or abberantly conducted supraventricular complexes, 3 episodes of NSVT all 3 beats each, no significant pauses. )
[2018-05-26] MEDS: BUMEX PO SCH (11:03)
[2018-05-26] MEDS: ELIQUIS PO SCH (11:04)
[2018-05-26] MEDS: PEPCID PO SCH ×2 (11:05→21:20)
[2018-05-26] MEDS: LANOXIN PO SCH ×2 (11:05→16:30)
[2018-05-26] MEDS: TRICOR PO SCH (11:05)
[2018-05-26] MEDS: SODIUM CHLORIDE FLUSH SYRINGE 10 ML IV SCH ×2 (11:10→21:20)
[2018-05-26 12:44] LABS: Free T4 (Free Thyroxine) 1.58 ng/dL (0.76-1.46)
--- NOTE | 2018-05-26 12:59 | Progress Note ---
Assessment and Plan Assessment and plan: Patient is a 62 yo man with Atrial Fib currently on Therapeutic Anticoagulation with Eliquis, DM, HTN, Obesity bmi 37 and DLP who presented to [facility] ED with chest palpitations. Pt was seen by his assistant teacher in the office and was found to have Atrial Fib with RVR. Pt was instructed to seek further care at [facility]. He initially presented to ED with HR 140s - 150s. He was given IV cardizem bolus. He denies any complaints. He reports that he is typically asymptomatic when he is in AFib with RVR. * Echo done 10/2017 showed EF 58%, mild LVH. * Lexiscan MPI stress test done 10/2017 was negative for ischemia, showed fixed defects in mid inferior and apical inferior location. * 48Hr Holter study done 03/2018 showed dominant rhythm atrial fibrillation with mostly RVR, average HR 144bpm, high density ventricular ectopies or abberantly conducted supraventricular complexes, 3 episodes of NSVT all 3 beats each, no significant pauses. -Afib with RVR: Cardiology is following, adjusting medications to control rate, failed Cardioversion, medical management -Type 2 Diabetes Mellitus: ADA diet, insulin, accu check -HTN (hypertension): low salt diet, treat with antihypertensives -Hyperlipidemia: statin therapy -DVT prophylaxis: SCD to BLE, Eliquis History Interval history: Patient was seen and examined. Follow-up on current diagnosis of AFib with RVR. Overnight uneventful. Patient denies any chest pain, shortness breath, nausea/vomiting or severe headaches. Imaging, nursing note, chart, labs and old chart reviewed. Discussed with patient. Hospitalist Physical - Physical exam Narrative exam: Gen: WDWN, NAD, Awake, Alert, Orientated HEENT: NCAT, EOMI, PERRL, OP Clear Neck: supple, no adenopathy, no thyromegaly, no JVD CVS/Heart: irregular irregular, normal S1S2, pulses present bilaterally Chest/Lungs: CTA B, Symmetrical chest expansion, good air entry bilaterally GI/Abdomen: soft, NTND, good bowel sounds, no guarding or rebound /Bladder: no suprapubic tenderness, no CVA or paraspinal tenderness Extermity/Skin: no c/c/e, no obvious rash MSK: FROM x 4 Neuro: CN 2-12 grossly intact, no new focal deficits Psych: calm - Constitutional Vitals: Temp Pulse Resp BP Pulse Ox 99.3 F 53 L 18 111/69 99 05/26/18 04:51 05/26/18 12:16 05/26/18 06:48 05/26/18 12:16 05/26/18 12:16 General appearance: Absent: mild distress Results - Labs CBC & Chem 7: 05/22/18 12:00 05/23/18 06:10 Labs: Laboratory Last Values WBC 10.4 K/mm3 (4.5-11.0) 05/22/18 12:00 RBC 5.66 M/mm3 (3.65-5.03) H 05/22/18 12:00 Hgb 14.7 gm/dl (11.8-15.2) 05/22/18 12:00 Hct 44.6 % (35.5-45.6) 05/22/18 12:00 MCV 79 fl (84-94) L 05/22/18 12:00 MCH 26 pg (28-32) L 05/22/18 12:00 MCHC 33 % (32-34) 05/22/18 12:00 RDW 14.3 % (13.2-15.2) 05/22/18 12:00 Plt Count 201 K/mm3 (140-440) 05/22/18 12:00 Lymph % (Auto) 22.3 % (13.4-35.0) 05/22/18 12:00 [place] % (Auto) 8.8 % (0.0-7.3) H 05/22/18 12:00 Eos % (Auto) 1.9 % (0.0-4.3) 05/22/18 12:00 Baso % (Auto) 0.9 % (0.0-1.8) 05/22/18 12:00 Lymph # 2.3 K/mm3 (1.2-5.4) 05/22/18 12:00 [place] # 0.9 K/mm3 (0.0-0.8) H 05/22/18 12:00 Eos # 0.2 K/mm3 (0.0-0.4) 05/22/18 12:00 Baso # 0.1 K/mm3 (0.0-0.1) 05/22/18 12:00 Seg Neutrophils % 66.1 % (40.0-70.0) 05/22/18 12:00 Seg Neutrophils # 6.9 K/mm3 (1.8-7.7) 05/22/18 12:00 Sodium 136 mmol/L (137-145) L 05/23/18 06:10 Potassium 5.0 mmol/L (3.6-5.0) 05/23/18 06:10 Chloride 102.2 mmol/L (98-107) 05/23/18 06:10 Carbon Dioxide 22 mmol/L (22-30) 05/23/18 06:10 Anion Gap 17 mmol/L 05/23/18 06:10 BUN 13 mg/dL (9-20) 05/23/18 06:10 Creatinine 1.0 mg/dL (0.8-1.5) 05/23/18 06:10 Estimated GFR > 60 ml/min 05/23/18 06:10 BUN/Creatinine Ratio 13 % 05/23/18 06:10 Glucose 122 mg/dL (75-100) H 05/23/18 06:10 POC Glucose 132 (70-105) H 05/26/18 06:13 Calcium 8.5 mg/dL (8.4-10.2) 05/23/18 06:10 Phosphorus 3.10 mg/dL (2.5-4.5) 05/22/18 12:00 Magnesium 1.90 mg/dL (1.7-2.3) 05/22/18 12:00 Total Bilirubin 0.90 mg/dL (0.1-1.2) 05/22/18 12:00 AST 18 units/L (5-40) 05/22/18 12:00 ALT 29 units/L (7-56) 05/22/18 12:00 Alkaline Phosphatase 61 units/L (35-129) 05/22/18 12:00 Total Protein 6.8 g/dL (6.3-8.2) 05/22/18 12:00 Albumin 4.0 g/dL (3.9-5) 05/22/18 12:00 Albumin/Globulin Ratio 1.4 % 05/22/18 12:00 TSH 1.600 mlU/mL (0.270-4.200) 05/26/18 11:55 Free T4 1.58 ng/dL (0.76-1.46) H 05/26/18 11:55 Urine Color Yellow (Yellow) 05/25/18 Unknown Urine Turbidity Clear (Clear) 05/25/18 Unknown Urine pH 6.0 (5.0-7.0) 05/25/18 Unknown Ur Specific [place] 1.004 (1.003-1.030) 05/25/18 Unknown Urine Protein <15 mg/dl mg/dL (Negative) 05/25/18 Unknown Urine Glucose (UA) Neg mg/dL (Negative) 05/25/18 Unknown Urine Ketones Neg mg/dL (Negative) 05/25/18 Unknown Urine Blood Neg (Negative) 05/25/18 Unknown Urine Nitrite Neg (Negative) 05/25/18 Unknown Urine Bilirubin Neg (Negative) 05/25/18 Unknown Urine Urobilinogen 4.0 mg/dL (<2.0) 05/25/18 Unknown Ur Leukocyte Esterase Neg (Negative) 05/25/18 Unknown Urine WBC (Auto) < 1.0 /HPF (0.0-6.0) 05/25/18 Unknown Urine RBC (Auto) 1.0 /HPF (0.0-6.0) 05/25/18 Unknown
[2018-05-26] MEDS: LOPRESSOR PO SCH ×3 (16:31→21:20)
[2018-05-26] MEDS ORDERED: TPN ADULT 3,000 ML IV SCH (20:00)
[2018-05-26 21:08] VITALS: BP 156/81
--- NOTE | 2018-05-27 07:07 | Discharge Summary ---
Providers - Providers Date of Admission: 05/22/18 15:39 Date of discharge: 05/27/18 Attending physician: JULIET GRIMES 05/22/18 14:12 Consult to Physician [CONS] Stat Comment: Consulting Provider: CHEYENNE SHIRLEY Physician Instructions: Reason For Exam: afib [facility] Condition: Fair Hospital course: Patient is a 62 yo man with Atrial Fib currently on Therapeutic Anticoagulation with Eliquis, DM, HTN, Obesity bmi 37 and DLP who presented to [facility] ED with chest palpitations. 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 Pt was instructed to seek further care at [facility]. He initially presented to ED with HR 140s - 150s. He was given IV cardizem bolus. He denies any complaints. He reports that he is typically asymptomatic when he is in AFib with RVR. * Echo done 10/2017 showed EF 58%, mild LVH. * Lexiscan MPI stress test done 10/2017 was negative for ischemia, showed fixed defects in mid inferior and apical inferior location. * 48Hr Holter study done 03/2018 showed dominant rhythm atrial fibrillation with mostly RVR, average HR 144bpm, high density ventricular ectopies or abberantly conducted supraventricular complexes, 3 episodes of NSVT all 3 beats each, no significant pauses. -Afib with RVR: Cardiology is following, adjusting medications to control rate, failed Cardioversion, medical management -Type 2 Diabetes Mellitus: ADA diet, insulin, accu check -HTN (hypertension): low salt diet, treat with antihypertensives -Hyperlipidemia: statin therapy -DVT prophylaxis: SCD to Lenora CAMPBELL It appears Cardiology transferred to [facility], Disposition: [id number] ANOTHER TYPE THCARE Core Measure Documentation - Palliative Care Palliative Care/ Comfort Measures: Not Applicable - Core Measures Any of the following diagnoses?: none - VTE Discharge Requirements Deep Vein Thrombosis/Pulmonary Embolism Present on Admission: No Has pt received <5 days of overlap therapy or INR<2.0: No Anticoagulant overlap therapy prescribed at discharge: No Contraindication No Overlap Therapy order at DC: Not Indicated Exam - Physical Exam Narrative exam: Gen: WDWN, NAD, Awake, Alert, Orientated HEENT: NCAT, EOMI, PERRL, OP Clear Neck: supple, no adenopathy, no thyromegaly, no JVD CVS/Heart: irregular irregular, normal S1S2, pulses present bilaterally Chest/Lungs: CTA B, Symmetrical chest expansion, good air entry bilaterally GI/Abdomen: soft, NTND, good bowel sounds, no guarding or rebound /Bladder: no suprapubic tenderness, no CVA or paraspinal tenderness Extermity/Skin: no c/c/e, no obvious rash MSK: FROM x 4 Neuro: CN 2-12 grossly intact, no new focal deficits Psych: calm - Constitutional Vitals: Temp Pulse Resp BP Pulse Ox 98.8 F 91 H 18 156/81 96 05/26/18 19:58 05/26/18 19:58 05/26/18 19:58 05/26/18 19:58 05/26/18 19:58 Plan Follow up with: NISHANT CHRISTIANSONDENVER MD ИВАН [Primary Care Provider] - 3-5 Days
[2018-05-29] MEDS ORDERED: NON-FORMULARY (Dulaglutide [Trulicity] 1.5 MG) SQ SCH (10:00)
== END 2018-05-26 22:49 | disposition short-term general hospital (02) | DRG 310 ==
LOC: ED 11:17 → 4A 15:39
PROVIDERS: ADMIT Internal Medicine; ATTEND Internal Medicine
PROC: 5A09357 Assistance with Respiratory Ventilation, Less than 24 Consecutive Hours, Continuous Positive Airway Pressure (ICD-10-PCS; 2018-05-22)
PROC: 5A09357 Assistance with Respiratory Ventilation, Less than 24 Consecutive Hours, Continuous Positive Airway Pressure (ICD-10-PCS; 2018-05-24)
PROC: 5A2204Z Restoration of Cardiac Rhythm, Single (ICD-10-PCS; principal; 2018-05-25)
DX: I48.1 Persistent atrial fibrillation (principal); E11.8 Type 2 diabetes mellitus with unspecified complications; I10 Essential (primary) hypertension; E66.9 Obesity, unspecified; G47.33 Obstructive sleep apnea (adult) (pediatric); E78.2 Mixed hyperlipidemia; Z79.01 Long term (current) use of anticoagulants; Z68.35 Body mass index [BMI] 35.0-35.9, adult; Z82.49 Family history of ischemic heart disease and other diseases of the circulatory system; Z83.3 Family history of diabetes mellitus; Z88.5 Allergy status to narcotic agent; Z79.899 Other long term (current) drug therapy; Z79.4 Long term (current) use of insulin
CPT/HCPCS: 36415; 71045; 80048; 80053; 81001; 82962; 83735; 84100; 84439; 84443; 85025; 87040; 90686; 92960; 93005; 93010; 94660; 94760; G0378; A9270-GY; J0282; J0696; J1160; J1815; J2270; J2704; J7040; J7050; J7060